=== PATIENT | female | born 1945 | race Two or more races ===

== ENCOUNTER 2019-04-12 09:13 | Emergency (ER) | payer OTHER ==
[~2019-04-12] VITALS: Ht 162.6 cm; Wt 67.1 kg
[2019-04-12] MEDS ORDERED: TOPROL XL100 M1 (09:29)
[2019-04-12] MEDS ORDERED: METFORMIN HCL500 MG (09:30)
[2019-04-12] MEDS ORDERED: LANTUS SOL100 UNIT/1 (09:30)
== END 2019-04-12 15:46 | disposition home or self-care (01) ==
LOC: ER 09:13 → CPU-OBS 09:19 → ER 09:19
DX: R07.89 Other chest pain (principal); R42 Dizziness and giddiness